=== PATIENT | female | born 1970 | race American Indian/Alaskan Native ===

== ENCOUNTER 2016-12-19 11:03 | Emergency (ER) | payer OTHER ==
[2016-12-19 11:16] VITALS: BP 155/81
[2016-12-19] MEDS ORDERED: NORCO PO ONE (11:38)
--- NOTE | 2016-12-19 11:39 | Emergency Department Report ---
ED Upper Extremity Inj HPI - General Chief Complaint: Fall Stated Complaint: FALL, LEFT ARM AND WRIST INJURY Time Seen by Provider: 12/19/16 11:25 Source: patient Mode of arrival: Ambulatory Limitations: No Limitations - History of Present Illness MD Complaint: Injury to:: left -: Sudden Other Extremity Injury: Elbow: Left Other Injuries: none Handedness: right Place: home Worsens With: movement of extremity Context: fall Associated Symptoms: denies other symptoms - Related Data Home Medications Medication Instructions Recorded Confirmed Last Taken ALBUTEROL Inhaler [Proair] 2 puff IH QID PRN 10/19/12 06/23/13 10/18/12 22:00 ASA/Calcium Carb/Mag/Al Hydrox 325 mg PO 10/19/12 06/23/13 10/18/12 10:00 [Ascriptin 325 mg Tablet] Cyclobenzaprine [Flexeril] 10 mg PO TID 10/19/12 06/23/13 06/23/13 FLUoxetine HCL [Fluoxetine] 40 mg PO QDAY 10/19/12 06/23/13 06/23/13 Hydrochlorothiazide [Hctz] 25 mg PO QDAY 10/19/12 06/23/13 06/23/13 Ibuprofen [Motrin] 800 mg PO TID PRN 10/19/12 06/23/13 10/17/12 22:00 Lisinopril [Zestril] 40 mg PO QDAY 10/19/12 06/23/13 06/23/13 Omeprazole [First-Omeprazole] 20 mg PO QDAY 10/19/12 06/23/13 06/23/13 Trazodone HCl [traZODone] 100 mg PO HS 10/19/12 06/23/13 06/23/13 hydrOXYzine PAMOATE (NF) [Vistaril] 25 mg PO 10/19/12 06/23/13 10/11/12 15:00 risperiDONE [RisperDAL] 2 mg PO HS 10/19/12 06/23/13 06/23/13 traMADol [Ultram] 50 mg PO Q6HR PRN 10/19/12 06/23/13 06/23/13 Aspirin [Aspirin TAB] 325 mg PO QDAY 06/23/13 06/23/13 06/23/13 Previous Rx's Medication Instructions Recorded Last Taken Type Hydrocodone Bit/Acetaminophen 1 each PO Q6H PRN #16 tablet 10/19/12 Unknown Rx [Lortab 5-500 Tablet] Sulfamethoxazole/Trimethoprim 1 each PO BID #14 tablet 10/19/12 Unknown Rx [Bactrim DS] Butalb/Acetamin/Caff 50-325-40 1 tab PO Q6H #15 tablet 11/02/12 06/23/13 Rx [Fioricet] Hyoscyamine Subl [Levsin Sl] 0.125 mg SL Q6HR PRN #14 tablet 06/23/13 Unknown Rx Ondansetron [Zofran Odt] 8 mg PO TID PRN #7 tab.rapdis 06/23/13 Unknown Rx amLODIPine [Norvasc] 5 mg PO DAILY #30 tab 06/23/13 Unknown Rx Allergies Allergy/AdvReac Type Severity Reaction Status Date / Time erythromycin base Allergy Swelling Verified 11/02/12 15:43 [Erythromycin Base] Penicillins Allergy Swelling Verified 10/19/12 02:25 Tetracyclines Allergy Swelling Verified 10/19/12 02:26 seafoo Allergy Swelling Uncoded 10/19/12 02:25 ED Review of Systems ROS: Stated complaint: FALL, LEFT ARM AND WRIST INJURY Other details as noted in HPI Comment: All other systems reviewed and negative Musculoskeletal: other (arm pain sp falling roller skating last pm) ED Past Medical Hx - Past Medical History Hx Hypertension: Yes Hx Heart Attack/AMI: Yes (2006) Hx Psychiatric Treatment: Yes (PTSD, depression, anxiety) Hx Asthma: Yes Additional medical history: chronic pain patient. Acid Reflux. gerd - Surgical History Additional Surgical History: Bilateral tubal ligation, laparoscopy, cardiac catheterization 2009 - Social History Smoking Status: Current Every Day Smoker Substance Use Type: None - Medications Home Medications: Home Medications Medication Instructions Recorded Confirmed Last Taken Type ALBUTEROL Inhaler [Proair] 2 puff IH QID PRN 10/19/12 06/23/13 10/18/12 22:00 History ASA/Calcium Carb/Mag/Al Hydrox 325 mg PO 10/19/12 06/23/13 10/18/12 10:00 History [Ascriptin 325 mg Tablet] Cyclobenzaprine [Flexeril] 10 mg PO TID 10/19/12 06/23/13 06/23/13 History FLUoxetine HCL [Fluoxetine] 40 mg PO QDAY 10/19/12 06/23/13 06/23/13 History Hydrochlorothiazide [Hctz] 25 mg PO QDAY 10/19/12 06/23/13 06/23/13 History Hydrocodone Bit/Acetaminophen 1 each PO Q6H PRN #16 tablet 10/19/12 06/23/13 Unknown Rx [Lortab 5-500 Tablet] Ibuprofen [Motrin] 800 mg PO TID PRN 10/19/12 06/23/13 10/17/12 22:00 History Lisinopril [Zestril] 40 mg PO QDAY 10/19/12 06/23/13 06/23/13 History Omeprazole [First-Omeprazole] 20 mg PO QDAY 10/19/12 06/23/13 06/23/13 History Sulfamethoxazole/Trimethoprim 1 each PO BID #14 tablet 10/19/12 06/23/13 Unknown Rx [Bactrim DS] Trazodone HCl [traZODone] 100 mg PO HS 10/19/12 06/23/13 06/23/13 History hydrOXYzine PAMOATE (NF) [Vistaril] 25 mg PO 10/19/12 06/23/13 10/11/12 15:00 History risperiDONE [RisperDAL] 2 mg PO HS 10/19/12 06/23/13 06/23/13 History traMADol [Ultram] 50 mg PO Q6HR PRN 10/19/12 06/23/13 06/23/13 History Butalb/Acetamin/Caff 50-325-40 1 tab PO Q6H #15 tablet 11/02/12 06/23/13 Rx [Fioricet] Aspirin [Aspirin TAB] 325 mg PO QDAY 06/23/13 06/23/13 06/23/13 History Hyoscyamine Subl [Levsin Sl] 0.125 mg SL Q6HR PRN #14 tablet 06/23/13 Unknown Rx Ondansetron [Zofran Odt] 8 mg PO TID PRN #7 tab.rapdis 06/23/13 Unknown Rx amLODIPine [Norvasc] 5 mg PO DAILY #30 tab 06/23/13 Unknown Rx ED Physical Exam - General Limitations: No Limitations General appearance: alert - Head Head exam: Present: atraumatic - Eye Eye exam: Present: normal appearance - ENT ENT exam: Present: mucous membranes moist - Neck Neck exam: Present: normal inspection - Respiratory Respiratory exam: Present: normal lung sounds bilaterally - Cardiovascular Cardiovascular Exam: Present: regular rate - GI/Abdominal GI/Abdominal exam: Present: soft - Rectal Rectal exam: Present: deferred - Expanded Upper Extremity Exam Right Shoulder Exam: Present: normal inspection Upper Arm exam: Present: tenderness (prox to elbow joint), other (guarding elbow ). Absent: swelling, abrasion, laceration, ecchymosis, deformity, crepidus, dislocation, erythema Elbow exam: Present: other (see above ) Forearm Wrist exam: Present: normal inspection, full ROM. Absent: tenderness, swelling, abrasion, laceration, ecchymosis, deformity, crepidus, tenderness over anatomical snuff box Hand Wrist exam: Present: normal inspection Neuro motor exam: Present: wrist extension intact, thumb opposition intact, thumb IP flexion intact, thumb adduction intact Vascular: Present: vascular compromise, normal capillary refill, radial pulse, ulnar pulse - Back Exam Back exam: Present: normal inspection - Neurological Exam Neurological exam: Present: alert, oriented X3, CN II-XII intact - Psychiatric Psychiatric exam: Present: normal affect, normal mood ED Course Vital Signs 12/19/16 11:13 Temperature 98.9 F Pulse Rate 86 Respiratory 20 Rate Blood Pressure 155/81 O2 Sat by Pulse 100 Oximetry - Reevaluation(s) Reevaluation #1: 12/19/16 to er sp fall while roller skating no loc happened yest co arm pain jessee at the elbow she is not exactly sure how she landed fingers and wrist w full rom pain w extension of arm at elbow shoulder wnl no snuff box ulnar and rad nerve intact good rad and ulnar pulses fine motor movement distal intact xray noted splint dc home w dc poc ED Medical Decision Making - Radiology Data Radiology results: report reviewed, image reviewed interpreted by me: fat pad fx Discussed with Dr Alba Critical care attestation.: If time is entered above; I have spent that time in minutes in the direct care of this critically ill patient, excluding procedure time. ED Disposition Disposition: DC-01 TO HOME OR SELFCARE Is pt being admited?: No Does the pt Need Aspirin: No Condition: Stable Instructions: Arm Fracture in Adults (ED) Additional Instructions: ice rest splint sling continue home pain meds per pain MD see ortho this week Referrals: CRYSTAL FRYE MD [Staff Physician] - 3-5 Days Time of Disposition: 12:42
--- NOTE | 2016-12-19 13:07 | XRay Report ---
LEFT ELBOW THREE VIEWS: 12/19/16 11:03:00 CLINICAL: Fall and pain. FINDINGS: A subtle longitudinal nondisplaced fracture is identified in the radial head on one view. No other fracture. No dislocation. Prominent anterior and posterior fat pads. Mild soft tissue swelling at the olecranon. IMPRESSION: Acute traumatic nondisplaced fracture of the radial head.
--- NOTE | 2016-12-19 13:08 | XRay Report ---
XRAY LEFT FOREARM TWO VIEWS : 12/19/16 11:03:00 CLINICAL: Trauma and pain. FINDINGS: Normal bones, joints and soft tissues. No fracture is identified on this exam. IMPRESSION: Negative.
--- NOTE | 2016-12-19 13:09 | XRay Report ---
XRAY LEFT WRIST THREE VIEWS:12/19/16 11:03:00 CLINICAL: Fall and pain. FINDINGS: Normal bones, joints and soft tissues. No fracture or dislocation. IMPRESSION: Normal
== END 2016-12-19 13:04 | disposition home or self-care (01) ==
LOC: ED 11:03
DX: S59.902A Unspecified injury of left elbow, initial encounter (principal); I10 Essential (primary) hypertension; I25.2 Old myocardial infarction; J45.909 Unspecified asthma, uncomplicated; F17.200 Nicotine dependence, unspecified, uncomplicated; W18.39XA Other fall on same level, initial encounter; Y93.89 Activity, other specified; Y92.89 Other specified places as the place of occurrence of the external cause; Y99.8 Other external cause status

== ENCOUNTER 2017-03-16 12:09 | Observation (INO) | payer OTHER ==
[2017-03-16] MEDS ORDERED: ASPIRIN PO ONE (15:23)
[2017-03-16] MEDS ORDERED: NITRO-BID 2% TP ONE (15:23)
--- NOTE | 2017-03-16 15:23 | Emergency Department Report ---
Blank Doc - Documentation Documentation: Patient is a 46-year-old female who is presenting with chest pain. Patient states she had a PR in 2007 and also had angioplasty in 2010. Patient states for the past several days she has had chest heaviness with shortness of breath. Patient will have a full cardiac panel placed and will be sent to the main ED for further care
[2017-03-16 15:48] LABS: Basophils # (Auto) 0.1 K/mm3 (0.0-0.1); Eosinophils # (Auto) 0.3 K/mm3 (0.0-0.4); Eosinophils % (Auto) 4.4 % (0.0-4.3); Hemoglobin 13.6 gm/dl (10.1-14.3); Lymphocytes # (Auto) 2.2 K/mm3 (1.2-5.4); Lymphocytes % (Auto) 30.2 % (13.4-35.0); Mean Corpuscular HGB Conc 33 % (30-34); Mean Corpuscular Hemoglobin 29 pg (28-32); Mean Corpuscular Volume 89 fl (79-97); Monocytes # (Auto) 0.4 K/mm3 (0.0-0.8); Monocytes % (Auto) 4.8 % (0.0-7.3); Platelet Count 330 K/mm3 (140-440); Red Blood Count 4.63 M/mm3 (3.65-5.03); Red Cell Distribution Width 15.7 % (13.2-15.2)
[2017-03-16 16:00] LABS: INR 0.99 (0.87-1.13)
[2017-03-16 16:01] LABS: Partial Thromboplastin Time 32.7 Sec. (24.2-36.6)
[2017-03-16 16:06] LABS: Alanine Aminotransferase 15 units/L (7-56); Albumin 4.2 g/dL (3.9-5); BUN/Creatinine Ratio 24; Blood Urea Nitrogen 17 mg/dL (7-17); Calcium 9.2 mg/dL (8.4-10.2); Hemolysis Index 10
--- NOTE | 2017-03-16 16:21 | XRay Report ---
FINAL REPORT PROCEDURE: XR CHEST ROUTINE 2V TECHNIQUE: PA and lateral chest radiographs were obtained. CPT 95103 HISTORY: Chest Pain COMPARISON: No prior studies are available for comparison. FINDINGS: Heart: Normal. Mediastinum/Vessels: Normal. Lungs/Pleural space: Normal. Bony thorax: No acute osseous abnormality. Other: IMPRESSION: Negative examination.
--- NOTE | 2017-03-16 16:27 | Emergency Department Report ---
ED Chest Pain HPI - General Chief Complaint: Chest Pain Stated Complaint: CHEST PAIN Time Seen by Provider: 03/16/17 15:01 Source: patient Mode of arrival: Ambulatory Limitations: No Limitations - History of Present Illness Initial Comments: This is a pleasant 46-year-old female with a past medical history significant for cardiac catheterization in 2009 and MA in 2006 with no stent placement at that time, asthma, hypertension, sciatica, GERD, osteopenia, and following mental health conditions PTSD, depression, anxiety, chronic pain syndrome. The patient went to her mental health clinic and was noted to have elevated blood pressure of 174/80. When she told them that she was having chest pain they referred her to the emergency room. She presents today with a 2 day history of constant chest pain described as dull and tingling with radiation into the back followed by a burning sensation. She does admit that it also radiates down her left arm which creates tingling. She also admits to some chills and weakness. She denies any kind of vomiting or diarrhea but she admits to nausea and she also denies a cough. She denies any fever as well. She admits to being a smoker half a pack a day she denies alcohol use or illicit drug use. 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 She admits that the symptoms that she is expressing today is similar in nature to her previous episodes where she had an MA. She denies that it feels like her usual GERD-like symptoms. She has taken her medications for GERD with no effect. MD Complaint: chest pain -: Gradual, days(s) (2) Onset: during rest Pain Location: substernal Pain Radiation: LUE, back Severity: moderate Quality: dull, similar to prior MA Consistency: constant Improves With: nothing Worsens With: nothing re: nausea. denies: vomting, diaphoresis, dyspnea, sense of impending doom Other Symptoms: denies: cough, fever, syncope, rash, acid taste in mouth, leg swelling, palpitations Treatments Prior to Arrival: none - Related Data Home Medications Medication Instructions Recorded Confirmed Last Taken Cyclobenzaprine [Flexeril] 10 mg PO TID 10/19/12 03/16/17 03/16/17 Hydrochlorothiazide [Hctz] 25 mg PO QDAY 10/19/12 03/16/17 03/16/17 Lisinopril [Zestril] 40 mg PO QDAY 10/19/12 03/16/17 03/16/17 traMADol [Ultram] 50 mg PO Q6HR PRN 10/19/12 03/16/17 03/16/17 Aspirin [Aspirin TAB] 325 mg PO QDAY 06/23/13 03/16/17 03/16/17 Escitalopram Oxalate [Lexapro] 20 mg PO DAILY 03/16/17 03/16/17 03/16/17 Meloxicam [Mobic] 15 mg PO DAILY 03/16/17 03/16/17 03/16/17 Pantoprazole [Protonix TAB] 20 mg QDAY 03/16/17 03/16/17 03/16/17 Prazosin [Minipress] 1 mg PO BID 03/16/17 03/16/17 03/16/17 amLODIPine [Norvasc] 10 mg PO DAILY 03/16/17 03/16/17 03/16/17 Allergies Allergy/AdvReac Type Severity Reaction Status Date / Time erythromycin base Allergy Swelling Verified 11/02/12 15:43 [Erythromycin Base] Penicillins Allergy Swelling Verified 10/19/12 02:25 Tetracyclines Allergy Swelling Verified 10/19/12 02:26 seafoo Allergy Swelling Uncoded 10/19/12 02:25 Heart Score - HEART Score History: Moderately suspicious EKG: Non-specific Age: 45-65 Risk factors: > 3 risk factors or hx of atherosclerotic disease Troponin: 1-3x normal limit HEART Score: 6 ED Review of Systems ROS: Stated complaint: CHEST PAIN Other details as noted in HPI Constitutional: no symptoms reported, chills. denies: fever Eyes: denies: eye pain, eye discharge, vision change ENT: denies: ear pain, throat pain Respiratory: denies: cough, shortness of breath, wheezing Cardiovascular: as per HPI, chest pain. denies: palpitations Endocrine: no symptoms reported Gastrointestinal: nausea. denies: abdominal pain, diarrhea Genitourinary: denies: urgency, dysuria, discharge Musculoskeletal: denies: back pain, joint swelling, arthralgia Skin: denies: rash, lesions Neurological: denies: headache, weakness, paresthesias Psychiatric: denies: anxiety, depression Hematological/Lymphatic: denies: easy bleeding, easy bruising ED Past Medical Hx - Past Medical History Hx Hypertension: Yes Hx Heart Attack/AMI: Yes (2006) Hx Psychiatric Treatment: Yes (PTSD, depression, anxiety) Hx Asthma: Yes Additional medical history: chronic pain patient. Acid Reflux. gerd - Surgical History Additional Surgical History: Bilateral tubal ligation, laparoscopy, cardiac catheterization 2009 - Social History Smoking Status: Current Every Day Smoker Substance Use Type: None - Medications Home Medications: Home Medications Medication Instructions Recorded Confirmed Last Taken Type Cyclobenzaprine [Flexeril] 10 mg PO TID 10/19/12 03/16/17 03/16/17 History Hydrochlorothiazide [Hctz] 25 mg PO QDAY 10/19/12 03/16/17 03/16/17 History Lisinopril [Zestril] 40 mg PO QDAY 10/19/12 03/16/17 03/16/17 History traMADol [Ultram] 50 mg PO Q6HR PRN 10/19/12 03/16/17 03/16/17 History Aspirin [Aspirin TAB] 325 mg PO QDAY 06/23/13 03/16/17 03/16/17 History Escitalopram Oxalate [Lexapro] 20 mg PO DAILY 03/16/17 03/16/17 03/16/17 History Meloxicam [Mobic] 15 mg PO DAILY 03/16/17 03/16/17 03/16/17 History Pantoprazole [Protonix TAB] 20 mg QDAY 03/16/17 03/16/17 03/16/17 History Prazosin [Minipress] 1 mg PO BID 03/16/17 03/16/17 03/16/17 History amLODIPine [Norvasc] 10 mg PO DAILY 03/16/17 03/16/17 03/16/17 History ED Physical Exam - General Limitations: No Limitations General appearance: alert, in no apparent distress - Head Head exam: Present: atraumatic - Eye Eye exam: Present: normal appearance, PERRL - ENT ENT exam: Present: normal exam, normal orophraynx - Neck Neck exam: Present: normal inspection - Respiratory Respiratory exam: Present: normal lung sounds bilaterally. Absent: respiratory distress, wheezes, rales, rhonchi - Cardiovascular Cardiovascular Exam: Present: regular rate, normal rhythm - GI/Abdominal GI/Abdominal exam: Present: soft, normal bowel sounds - Extremities Exam Extremities exam: Present: normal inspection, full ROM - Back Exam Back exam: Present: normal inspection, full ROM - Neurological Exam Neurological exam: Present: alert, oriented X3, CN II-XII intact - Psychiatric Psychiatric exam: Present: normal affect, normal mood - Skin Skin exam: Present: warm, dry, intact, normal color ED Course Vital Signs 03/16/17 03/16/17 03/16/17 12:15 12:21 15:45 Temperature 97.9 F Pulse Rate 95 H Respiratory 18 19 Rate Blood Pressure 152/80 152/80 Blood Pressure [Right] O2 Sat by Pulse 99 Oximetry 03/16/17 03/16/17 03/16/17 16:01 16:15 16:30 Temperature 98.0 F Pulse Rate 75 76 82 Respiratory 19 17 21 Rate Blood Pressure 121/61 136/62 129/61 Blood Pressure 121/61 [Right] O2 Sat by Pulse 100 100 100 Oximetry 03/16/17 03/16/17 03/16/17 16:45 16:53 17:00 Temperature Pulse Rate 93 H 97 H 81 Respiratory 11 L 12 Rate Blood Pressure 123/61 123/61 122/68 Blood Pressure [Right] O2 Sat by Pulse 100 Oximetry 03/16/17 17:15 Temperature Pulse Rate 79 Respiratory 14 Rate Blood Pressure 110/55 Blood Pressure [Right] O2 Sat by Pulse 100 Oximetry - Reevaluation(s) Reevaluation #1: 03/16/17 18:17 I discussed the case with Dr. Gama. At this time we'll go ahead and admit the patient for observation to rule out any type of acute coronary syndrome. I stressed to the patient as well. She is understanding. ED Medical Decision Making - Lab Data Result diagrams: 03/16/17 15:33 03/16/17 15:33 Critical care attestation.: If time is entered above; I have spent that time in minutes in the direct care of this critically ill patient, excluding procedure time. ED Disposition Clinical Impression: Chest pain Qualifiers: Chest pain type: other chest pain Qualified Code(s): R07.89 - Other chest pain ; R07.8 - Other chest pain Disposition: OP ADMIT IP TO THIS HOSP Is pt being admited?: Yes Does the pt Need Aspirin: No Condition: Stable Instructions: Chest Pain (ED) Referrals: PRIMARY CARE, [Primary Care Provider] - 3-5 Days
[2017-03-16 16:29] LABS: Amphetamine Screen,Urine PRESUMPTIVE NEGATIVE; Benzodiazepines Screen,Urine PRESUMPTIVE NEGATIVE; Cannabinoid Screen,Urine PRESUMPTIVE NEGATIVE; Cocaine Screen,Urine PRESUMPTIVE NEGATIVE; Methadone Screen,Urine PRESUMPTIVE NEGATIVE; Opiate Screen,Urine PRESUMPTIVE NEGATIVE
[2017-03-16] MEDS ORDERED: ZOFRAN IV ONE ×2 (18:08→22:48)
[2017-03-16] MEDS ORDERED: LIDOCAINE VISCOUS 2% PO ONE (22:36)
[2017-03-16] MEDS ORDERED: ALUM-MAG HYDROX-SIMETH 200-200-20MG/5ML PO ONE (22:39)
[2017-03-16] MEDS ORDERED: LIDOCAINE VISCOUS 2% ONE (22:41)
[2017-03-16] MEDS ORDERED: ALUM-MAG HYDROX-SIMETH 200-200-20MG/5ML ONE (22:41)
[2017-03-16] MEDS ORDERED: ZOFRAN ONE (22:47)
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
[2017-03-17] MEDS ORDERED: DULCOLAX PR PRN (00:55)
[2017-03-17] MEDS ORDERED: DILAUDID IV PRN (00:55)
[2017-03-17] MEDS ORDERED: MILK OF MAGNESIA PO PRN (00:55)
[2017-03-17] MEDS ORDERED: TYLENOL PO PRN (00:55)
[2017-03-17] MEDS ORDERED: ZOFRAN IV PRN (00:55)
[2017-03-17] MEDS ORDERED: ULTRAM PO PRN (01:01)
[2017-03-17] MEDS ORDERED: MORPHINE IV PRN (01:22)
[2017-03-17] MEDS ORDERED: MINIPRESS PO SCH (02:00)
[2017-03-17] MEDS ORDERED: NACL 0.9% 1000 ML 1,000 ML ONE ×3 (02:31→05:18)
[2017-03-17] MEDS ORDERED: NACL 0.9% 1000 ML 1,000 ML IV ONE (05:36)
[2017-03-17] MEDS ORDERED: NACL 0.9% 1000 ML 1,000 ML IV SCH (06:00)
[2017-03-17] MEDS: FLEXERIL PO SCH ×2 (07:55→15:14)
[2017-03-17] MEDS ORDERED: LEXISCAN IV ONE ×2 (09:03→09:04)
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
[2017-03-17] MEDS ORDERED: HCTZ PO SCH (10:00)
[2017-03-17] MEDS ORDERED: NORVASC PO SCH (10:00)
[2017-03-17] MEDS ORDERED: PEPCID PO SCH (10:00)
[2017-03-17] MEDS ORDERED: LEXAPRO PO SCH (10:00)
[2017-03-17] MEDS ORDERED: PROTONIX PO SCH (10:00)
[2017-03-17] MEDS ORDERED: NON-FORMULARY (Escitalopram Oxalate [Lexapro] 20 MG) PO SCH (10:00)
[2017-03-17] MEDS ORDERED: MOBIC PO SCH (10:00)
[2017-03-17] MEDS ORDERED: ASPIRIN PO SCH (10:00)
[2017-03-17] MEDS ORDERED: ZESTRIL PO SCH (10:00)
[2017-03-17] MEDS ORDERED: NON-FORMULARY (Meloxicam [Mobic] 15 MG) PO SCH (10:00)
--- NOTE | 2017-03-17 13:24 | Event Note ---
Date: 03/17/17 Lexiscan MPI stress test this AM negative for ischemia, EF 61%. Currently stable cardiac status. Pt may discharge home from cardiology standpoint. Follow up in our [place] office with Ene Hartley NP, on 03/30/2017 @ 1:00PM. Alfie NOGUEIRA NP / DR. CAMACHO
--- NOTE | 2017-03-17 14:45 | Discharge Summary ---
<HILARY GOODRICH - Last Filed: 03/17/17 16:16> Providers - Providers Date of Admission: 03/16/17 18:19 Date of discharge: 03/17/17 Attending physician: RICKIE CA 03/17/17 00:55 Consult to Physician [CONS] Routine Consulting Provider: ALEXANDRE OJEDA Reason For Exam: CAD Place consult to:: CARDIO Notified:: N Primary care physician: CUTTER OPERATOR Hospitalization Condition: Stable Pertinent studies: Patient had a negative chest x-ray.. Lexiscan MPI stress test this AM negative for ischemia, EF 61%. Hospital course: 46-year-old female with a past medical history significant for cardiac catheterization in 2009 and [place] in 2006 with no stent placement at that time, asthma, hypertension, sciatica, GERD, osteopenia, and following mental health conditions PTSD, depression, anxiety, chronic pain syndrome. The patient went to her mental health clinic and was noted to have elevated blood pressure of 174 /80. When she told them that she was having chest pain they referred her to the emergency room. She presents today with a 2 day history of constant chest pain described as dull and tingling with radiation into the back followed by a burning sensation. -Patient had a stress test which revealed no ischemia. She was treated with analgesics and IV fluids for chest pain. -Patient with discharge home and continued on her current medication regimen. Discharge diagnoses Atypical chest pain Hypertension GERD Depression DVT prophylaxis Disposition: TO HOME OR SELFCARE Time spent for discharge: 32 minutes Core Measure Documentation - Palliative Care Palliative Care/ Comfort Measures: Not Applicable - Core Measures Any of the following diagnoses?: none Exam - Constitutional Vitals: Temp Pulse Resp BP Pulse Ox 97.4 F L 86 18 123/74 100 03/17/17 11:44 03/17/17 11:44 03/17/17 11:44 03/17/17 11:44 03/17/17 11:44 General appearance: Present: no acute distress, well-nourished - EENT Eyes: Present: PERRL ENT: hearing intact, clear oral mucosa - Neck Neck: Present: supple, normal ROM - Respiratory Respiratory effort: normal Respiratory: bilateral: CTA - Cardiovascular Heart Sounds: Present: S1 & S2. Absent: rub, click - Extremities Extremities: pulses symmetrical, No edema Peripheral Pulses: within normal limits - Abdominal General gastrointestinal: Present: soft, non-tender, non-distended, normal bowel sounds - Integumentary Integumentary: Present: clear, warm, dry - Musculoskeletal Musculoskeletal: gait normal, strength equal bilaterally - Psychiatric Psychiatric: appropriate mood/affect, intact judgment & insight - Neurologic Neurologic: CNII-XII intact, moves all extremities - Allied Health Allied health notes reviewed: nursing Plan Activity: advance as tolerated, fall precautions Weight Bearing Status: Weight Bear as Tolerated Diet: low fat, low cholesterol, low salt Follow up with: PRIMARY CARE, [Primary Care Provider] - 3-5 Days RUBIO GOSS NP [Advanced Practice Nurse] - 03/30/17 1:00 pm <RICKIE CA - Last Filed: 03/18/17 10:17> Providers - Providers Date of Admission: 03/16/17 18:19 Attending physician: RICKIE CA 03/17/17 00:55 Consult to Physician [CONS] Routine Consulting Provider: ALEXANDRE OJEDA Reason For Exam: CAD Place consult to:: CARDIO Notified:: N Primary care physician: CUTTER OPERATOR Hospitalization Hospital course: I saw and evaluated the patient. I agree with the findings and the plan of care as documented in the Nurse Practitioner's~note, with the following corrections and additions. Discharge diagnoses Atypical chest pain, likely due to GERD Hypertension, controlled with home meds Depression, need outpt follow up DVT prophylaxis Exam - Constitutional Vitals: Temp Pulse Resp BP Pulse Ox 97.4 F L 91 H 18 109/55 100 03/17/17 11:44 03/17/17 15:15 03/17/17 11:44 03/17/17 15:15 03/17/17 14:49
[2017-03-17 15:15] VITALS: BP 109/55
== END 2017-03-17 18:13 | disposition home or self-care (01) ==
LOC: ED 12:09 → 3A 18:19 → 4A 03-17 08:26
PROVIDERS: ADMIT Internal Medicine; ATTEND Internal Medicine
DX: R07.89 Other chest pain (principal); I10 Essential (primary) hypertension; K21.9 Gastro-esophageal reflux disease without esophagitis; F41.9 Anxiety disorder, unspecified; F32.9 Major depressive disorder, single episode, unspecified; J45.909 Unspecified asthma, uncomplicated; I25.2 Old myocardial infarction; G89.29 Other chronic pain; F17.210 Nicotine dependence, cigarettes, uncomplicated
CPT/HCPCS: 36415; 71046; 78452; 80053; 80307; 83036; 84484; 85025; 85610; 85730; 93005; 93010; 93017; 96361; 96374; 96376; 99285; A9502; G0378; J2405; J2785; J7030

== ENCOUNTER 2018-10-04 17:30 | Emergency (ER) | payer OTHER ==
[2018-10-04 18:43] VITALS: BP 165/75
--- NOTE | 2018-10-04 18:47 | Event Note ---
ED Screening Note Date of service: 10/04/18 Time: 18:45 ED Screening Note: cc of allergic reaction to her gabapentin This initial assessment/diagnostic orders/clinical plan/treatment(s) is/are subject to change based on patients health status, clinical progression and re- assessment by fellow clinical providers in the ED. Further treatment and workup at subsequent clinical providers discretion. Patient/guardian urged not to elope from the ED as their condition may be serious if not clinically assessed and managed. Initial orders include:
[2018-10-04 21:18] LABS: Alanine Aminotransferase 13 units/L (7-56); Albumin 4.3 g/dL (3.9-5); BUN/Creatinine Ratio 21; Basophils # (Auto) 0.1 K/mm3 (0.0-0.1); Basophils % (Auto) 0.8 % (0.0-1.8); Blood Urea Nitrogen 19 mg/dL (7-17); Calcium 9.9 mg/dL (8.4-10.2); Eosinophils # (Auto) 0.1 K/mm3 (0.0-0.4); Eosinophils % (Auto) 1.7 % (0.0-4.3); Hematocrit 40.2 % (30.3-42.9); Hemoglobin 13.5 gm/dl (10.1-14.3); Hemolysis Index 4; Lymphocytes # (Auto) 3.2 K/mm3 (1.2-5.4); Mean Corpuscular HGB Conc 34 % (30-34); Mean Corpuscular Volume 86 fl (79-97); Monocytes # (Auto) 0.4 K/mm3 (0.0-0.8); Monocytes % (Auto) 4.9 % (0.0-7.3); Platelet Count 337 K/mm3 (140-440); Red Blood Count 4.69 M/mm3 (3.65-5.03)
--- NOTE | 2018-10-04 23:15 | Emergency Department Report ---
ED General Adult HPI - General Chief complaint: Allergic Reaction Stated complaint: SOB/VOMITING BLOOD Time Seen by Provider: 10/04/18 18:44 Source: patient Mode of arrival: Ambulatory Limitations: No Limitations - History of Present Illness Initial comments: 47-year-old female well as department complaining of having a reaction to her gabapentin at that she increased the dose to twice the amount guidance of her physician. States she began having some tingling to her lips and therefore with her mouth and was she felt was swelling and some some dysphagia. There is no swelling or dysphasia present time. She was worried that she may have been h aving a reaction so she wanted to be evaluated. States that she is taking his medications for several months and when she initially started the medication. She had similar symptoms that did resolve with her continuous use. However, she wanted to be sure. -: Gradual Location: face, mouth Consistency: now resolved Improves with: none Worsens with: none Associated Symptoms: denies other symptoms Treatments Prior to Arrival: none - Related Data Home Medications Medication Instructions Recorded Confirmed Last Taken Cyclobenzaprine [Flexeril 10 MG 10 mg PO TID 10/19/12 03/16/17 03/16/17 TAB] Lisinopril [Zestril TAB] 40 mg PO QDAY 10/19/12 03/16/17 03/16/17 hydroCHLOROthiazide [HCTZ] 25 mg PO QDAY 10/19/12 03/16/17 03/16/17 traMADol [Ultram 50 MG tab] 50 mg PO Q6HR PRN 10/19/12 03/16/17 03/16/17 Aspirin 325 mg PO QDAY 06/23/13 03/16/17 03/16/17 Escitalopram Oxalate [Lexapro] 20 mg PO DAILY 03/16/17 03/16/17 03/16/17 Meloxicam [Mobic] 15 mg PO DAILY 03/16/17 03/16/17 03/16/17 Pantoprazole [Protonix TAB] 20 mg QDAY 03/16/17 03/16/17 03/16/17 Prazosin [Minipress] 1 mg PO BID 03/16/17 03/16/17 03/16/17 amLODIPine [Norvasc] 10 mg PO DAILY 03/16/17 03/16/17 03/16/17 Allergies Allergy/AdvReac Type Severity Reaction Status Date / Time erythromycin base Allergy Swelling Verified 11/02/12 15:43 [Erythromycin Base] Penicillins Allergy Swelling Verified 10/19/12 02:25 Tetracyclines Allergy Swelling Verified 10/19/12 02:26 seafoo Allergy Swelling Uncoded 10/19/12 02:25 ED Review of Systems ROS: Stated complaint: SOB/VOMITING BLOOD Other details as noted in HPI Comment: All other systems reviewed and negative ED Past Medical Hx - Past Medical History Previous Medical History?: Yes Hx Hypertension: Yes Hx Heart Attack/AMI: Yes (2006) Hx Psychiatric Treatment: Yes (PTSD, depression, anxiety) Hx Asthma: Yes Additional medical history: chronic pain patient. Acid Reflux. gerd - Surgical History Past Surgical History?: Yes Additional Surgical History: Bilateral tubal ligation, laparoscopy, cardiac catheterization 2009 - Social History Smoking Status: Current Every Day Smoker Substance Use Type: Alcohol - Medications Home Medications: Home Medications Medication Instructions Recorded Confirmed Last Taken Type Cyclobenzaprine [Flexeril 10 MG 10 mg PO TID 10/19/12 03/16/17 03/16/17 History TAB] Lisinopril [Zestril TAB] 40 mg PO QDAY 10/19/12 03/16/17 03/16/17 History hydroCHLOROthiazide [HCTZ] 25 mg PO QDAY 10/19/12 03/16/17 03/16/17 History traMADol [Ultram 50 MG tab] 50 mg PO Q6HR PRN 10/19/12 03/16/17 03/16/17 History Aspirin 325 mg PO QDAY 06/23/13 03/16/17 03/16/17 History Escitalopram Oxalate [Lexapro] 20 mg PO DAILY 03/16/17 03/16/17 03/16/17 History Meloxicam [Mobic] 15 mg PO DAILY 03/16/17 03/16/17 03/16/17 History Pantoprazole [Protonix TAB] 20 mg QDAY 03/16/17 03/16/17 03/16/17 History Prazosin [Minipress] 1 mg PO BID 03/16/17 03/16/17 03/16/17 History amLODIPine [Norvasc] 10 mg PO DAILY 03/16/17 03/16/17 03/16/17 History ED Physical Exam - General Limitations: No Limitations General appearance: alert, in no apparent distress - Head Head exam: Present: atraumatic, normocephalic - Eye Eye exam: Present: normal appearance, PERRL, EOMI Pupils: Present: normal accommodation - ENT ENT exam: Present: normal exam, normal orophraynx, mucous membranes moist, TM's normal bilaterally, other (airway patent. No distress) - Neck Neck exam: Present: normal inspection - Respiratory Respiratory exam: Present: normal lung sounds bilaterally. Absent: respiratory distress, wheezes, rales, rhonchi, chest wall tenderness - Cardiovascular Cardiovascular Exam: Present: regular rate, normal rhythm. Absent: systolic murmur, diastolic murmur, rubs, gallop - GI/Abdominal GI/Abdominal exam: Present: soft, normal bowel sounds - Extremities Exam Extremities exam: Present: normal inspection - Back Exam Back exam: Present: normal inspection - Neurological Exam Neurological exam: Present: alert, oriented X3 - Psychiatric Psychiatric exam: Present: normal affect, normal mood - Skin Skin exam: Present: warm, dry, intact, normal color. Absent: rash ED Course Vital Signs 10/04/18 18:42 Temperature 98.1 F Pulse Rate 91 H Respiratory 18 Rate Blood Pressure 165/75 O2 Sat by Pulse 100 Oximetry ED Medical Decision Making - Lab Data Result diagrams: 10/04/18 20:32 10/04/18 20:32 - Medical Decision Making 47-year-old female status post increasing her gabapentin with likely a medication reaction or usual side effect of the elbow. No angioedema present at this time. No active signs of an allergic reaction present at this time. She is alert and oriented 3. Tolerates oral no distress. No wheezing. Laboratory data did not reveal an infectious findings or issues with her hemoglobin status Critical care attestation.: If time is entered above; I have spent that time in minutes in the direct care of this critically ill patient, excluding procedure time. ED Disposition Clinical Impression: Medication reaction Disposition: DC-01 TO HOME OR SELFCARE Is pt being admited?: No Does the pt Need Aspirin: No Condition: Stable Instructions: Hypertension (ED), Adverse Drug Reaction (ED) Additional Instructions: Please resume previous normal dose of Neurontin as we discussed once she have spoken with her primary care provider. Hold off on any new medications at this time until you can clearly of PCP. There is no active angioedema or anaphylaxis. Referrals: PRIMARY CARE, [Primary Care Provider] - 3-5 Days [facility] [Provider Group] - 3-5 Days
== END 2018-10-04 23:50 | disposition home or self-care (01) ==
LOC: ED 17:30
DX: K92.0 Hematemesis (principal); R06.02 Shortness of breath; K13.0 Diseases of lips; R13.10 Dysphagia, unspecified; T42.6X5A Adverse effect of other antiepileptic and sedative-hypnotic drugs, initial encounter; I10 Essential (primary) hypertension; I25.2 Old myocardial infarction; F43.10 Post-traumatic stress disorder, unspecified; F32.9 Major depressive disorder, single episode, unspecified; F41.9 Anxiety disorder, unspecified; J45.909 Unspecified asthma, uncomplicated; K21.9 Gastro-esophageal reflux disease without esophagitis; F17.200 Nicotine dependence, unspecified, uncomplicated; Z98.51 Tubal ligation status; Z95.818 Presence of other cardiac implants and grafts; Z79.82 Long term (current) use of aspirin; Z79.899 Other long term (current) drug therapy; Z88.1 Allergy status to other antibiotic agents; Z88.0 Allergy status to penicillin; Z91.013 Allergy to seafood; Y92.89 Other specified places as the place of occurrence of the external cause
CPT/HCPCS: 36415; 80053; 85025

== ENCOUNTER 2019-04-16 19:30 | Emergency (ER) | payer MEDICAID, OTHER ==
--- NOTE | 2019-04-16 20:17 | XRay Report ---
CHEST 2 VIEWS INDICATION / CLINICAL INFORMATION: Persistent cough and chest pain. COMPARISON: 03/16/17. FINDINGS: SUPPORT DEVICES: None. HEART / MEDIASTINUM: The heart size and pulmonary vasculature are normal. The aorta is normal in arsh tom. LUNGS / PLEURA: No significant pulmonary or pleural abnormality. No pneumothorax. ADDITIONAL FINDINGS: No significant additional findings. IMPRESSION: No acute abnormality or significant change. Signer Name: Jose Gibson MD Signed: 04/16/2019 8:12 PM Workstation Name: [id number]
[2019-04-16] MEDS ORDERED: ASPIRIN 325 MG TAB PO ONE (21:13)
[2019-04-16] MEDS ORDERED: IPRATROPIUM/ALBUTEROL SULFATE 3 ML AMPUL.NEB IH ONE (21:13)
[2019-04-16] MEDS ORDERED: methylPREDNISolone Sod Succinate 125 MG/2 ML INJ IV ONE (21:13)
[2019-04-16 22:07] LABS: Basophils # (Auto) 0.1 K/mm3 (0.0-0.1); Basophils % (Auto) 0.8 % (0.0-1.8); Eosinophils # (Auto) 0.2 K/mm3 (0.0-0.4); Eosinophils % (Auto) 2.7 % (0.0-4.3); Hematocrit 38.8 % (30.3-42.9); Hemoglobin 12.7 gm/dl (10.1-14.3); Lymphocytes # (Auto) 2.8 K/mm3 (1.2-5.4); Lymphocytes % (Auto) 39.2 % (13.4-35.0); Mean Corpuscular HGB Conc 33 % (30-34); Mean Corpuscular Volume 88 fl (79-97); Monocytes # (Auto) 0.4 K/mm3 (0.0-0.8); Monocytes % (Auto) 5.7 % (0.0-7.3); Platelet Count 370 K/mm3 (140-440); Red Blood Count 4.42 M/mm3 (3.65-5.03); Red Cell Distribution Width 15.7 % (13.2-15.2)
[2019-04-16 22:35] LABS: Alanine Aminotransferase 14 units/L (7-56); Albumin 4.1 g/dL (3.9-5); BUN/Creatinine Ratio 10; Blood Urea Nitrogen 7 mg/dL (7-17); Calcium 10.2 mg/dL (8.4-10.2); Hemolysis Index 0
[2019-04-16 23:50] VITALS: BP 132/61
--- NOTE | 2019-04-17 01:31 | Emergency Department Report ---
ED General Adult HPI - General Chief complaint: Chest Pain Stated complaint: CHEST PAIN/CHILLS/NAUSEA Source: patient Mode of arrival: Ambulatory Limitations: No Limitations - History of Present Illness Initial comments: Patient is a 48-year-old -Spanish female with a history of hypertension, chronic back pain, asthma and heavy tobacco smoker who presents to the ED with complaint of persistent nasal and sinus congestion, persistent cough with pleuritic chest pain, subjective fever and chills, sore throat, headache and diffuse body aches and pains for the last 1 week, worse in the last 2 days. Patient states that the cough has been productive with white to yellowish phlegm. Patient states that she has been taking [id number] medications for cough with no relief. Patient denies dizziness, shortness of breath, nausea, vomiting, abdominal pain, dysuria, urinary frequency and urgency, palpitations, syncope, change in vision or neck pain. MD Complaint: Nasal congestion; pleuritic chest pain; cough with phlegm -: Sudden, week(s) (1) Location: chest Radiation: non-radiation Severity scale (0 -10): 5 Quality: aching, sharp Consistency: constant Improves with: none Worsens with: none Associated Symptoms: denies other symptoms, chest pain (Pleuritic chest pain), cough, fever/chills, headaches, loss of appetite, malaise, shortness of breath. denies: confusion, diaphoresis, nausea/vomiting, rash, seizure, syncope, weakness, other Treatments Prior to Arrival: none - Related Data Home Medications Medication Instructions Recorded Confirmed Last Taken Cyclobenzaprine [Flexeril 10 MG 10 mg PO TID 10/19/12 03/16/17 03/16/17 TAB] hydroCHLOROthiazide [HCTZ] 25 mg PO QDAY 10/19/12 03/16/17 03/16/17 lisinopriL [Zestril TAB] 40 mg PO QDAY 10/19/12 03/16/17 03/16/17 traMADoL [Ultram 50 MG tab] 50 mg PO Q6HR PRN 10/19/12 03/16/17 03/16/17 Aspirin 325 mg PO QDAY 06/23/13 03/16/17 03/16/17 Escitalopram Oxalate [Lexapro] 20 mg PO DAILY 03/16/17 03/16/17 03/16/17 Meloxicam [Mobic] 15 mg PO DAILY 03/16/17 03/16/17 03/16/17 Pantoprazole [Protonix TAB] 20 mg QDAY 03/16/17 03/16/17 03/16/17 Prazosin 1 mg PO BID 03/16/17 03/16/17 03/16/17 amLODIPine 10 mg PO DAILY 03/16/17 03/16/17 03/16/17 Previous Rx's Medication Instructions Recorded Last Taken Type Albuterol Sulfate [Proventil Hfa] 1 - 2 puff IH Q6H PRN #1 inh 04/17/19 Unknown Rx Benzonatate [Tessalon Perles] 100 mg PO Q8HR #30 capsule 04/17/19 Unknown Rx Cetirizine HCl [Zyrtec 10mg tab] 10 mg PO DAILY #30 tablet 04/17/19 Unknown Rx Ibuprofen [Motrin] 800 mg PO Q8HR PRN #24 tablet 04/17/19 Unknown Rx Prednisone [predniSONE 10 mg 10 mg PO .TAPER #21 tab.ds.pk 04/17/19 Unknown Rx (6-Day Pack, 21 Tabs)] levoFLOXacin [Levaquin TAB] 500 mg PO QDAY #10 tablet 04/17/19 Unknown Rx Allergies Allergy/AdvReac Type Severity Reaction Status Date / Time erythromycin base Allergy Swelling Verified 11/02/12 15:43 [Erythromycin Base] Penicillins Allergy Swelling Verified 10/19/12 02:25 Tetracyclines Allergy Swelling Verified 10/19/12 02:26 seafoo Allergy Swelling Uncoded 10/19/12 02:25 ED Review of Systems ROS: Stated complaint: CHEST PAIN/CHILLS/NAUSEA Other details as noted in HPI Constitutional: denies: chills, fever Eyes: denies: eye pain, eye discharge, vision change ENT: congestion. denies: ear pain, throat pain Respiratory: cough, shortness of breath, wheezing Cardiovascular: chest pain (Pleuritic chest wall pain). denies: palpitations Endocrine: no symptoms reported Gastrointestinal: denies: abdominal pain, nausea, vomiting, diarrhea Genitourinary: denies: urgency, dysuria, discharge Musculoskeletal: arthralgia, myalgia. denies: back pain, joint swelling Skin: denies: rash, lesions Neurological: headache. denies: weakness, paresthesias Psychiatric: denies: anxiety, depression Hematological/Lymphatic: denies: easy bleeding, easy bruising ED Past Medical Hx - Past Medical History Previous Medical History?: Yes Hx Hypertension: Yes Hx Heart Attack/AMI: Yes (2006) Hx Psychiatric Treatment: Yes (PTSD, depression, anxiety) Hx Asthma: Yes Additional medical history: chronic pain patient. Acid Reflux. gerd - Surgical History Past Surgical History?: Yes Additional Surgical History: Bilateral tubal ligation, laparoscopy, cardiac catheterization 2009 - Social History Smoking Status: Current Every Day Smoker Substance Use Type: None - Medications Home Medications: Home Medications Medication Instructions Recorded Confirmed Last Taken Type Cyclobenzaprine [Flexeril 10 MG 10 mg PO TID 10/19/12 03/16/17 03/16/17 History TAB] hydroCHLOROthiazide [HCTZ] 25 mg PO QDAY 10/19/12 03/16/17 03/16/17 History lisinopriL [Zestril TAB] 40 mg PO QDAY 10/19/12 03/16/17 03/16/17 History traMADoL [Ultram 50 MG tab] 50 mg PO Q6HR PRN 10/19/12 03/16/17 03/16/17 History Aspirin 325 mg PO QDAY 06/23/13 03/16/17 03/16/17 History Escitalopram Oxalate [Lexapro] 20 mg PO DAILY 03/16/17 03/16/17 03/16/17 History Meloxicam [Mobic] 15 mg PO DAILY 03/16/17 03/16/17 03/16/17 History Pantoprazole [Protonix TAB] 20 mg QDAY 03/16/17 03/16/17 03/16/17 History Prazosin 1 mg PO BID 03/16/17 03/16/17 03/16/17 History amLODIPine 10 mg PO DAILY 03/16/17 03/16/17 03/16/17 History Albuterol Sulfate [Proventil Hfa] 1 - 2 puff IH Q6H PRN #1 inh 04/17/19 Unknown Rx Benzonatate [Tessalon Perles] 100 mg PO Q8HR #30 capsule 04/17/19 Unknown Rx Cetirizine HCl [Zyrtec 10mg tab] 10 mg PO DAILY #30 tablet 04/17/19 Unknown Rx Ibuprofen [Motrin] 800 mg PO Q8HR PRN #24 tablet 04/17/19 Unknown Rx Prednisone [predniSONE 10 mg 10 mg PO .TAPER #21 tab.ds.pk 04/17/19 Unknown Rx (6-Day Pack, 21 Tabs)] levoFLOXacin [Levaquin TAB] 500 mg PO QDAY #10 tablet 04/17/19 Unknown Rx ED Physical Exam - General Limitations: No Limitations General appearance: alert, in no apparent distress - Head Head exam: Present: atraumatic, normocephalic, normal inspection - Eye Eye exam: Present: normal appearance, PERRL, EOMI Pupils: Present: normal accommodation - ENT ENT exam: Present: mucous membranes moist, TM's normal bilaterally, normal external ear exam, other (Grossly congested nasal passages; palpable frontal sinus pressure) - Neck Neck exam: Present: normal inspection, full ROM. Absent: tenderness, lymphadenopathy - Respiratory Respiratory exam: Present: wheezes (Mildly diffuse coarse wheezes). Absent: respiratory distress, rales, rhonchi, chest wall tenderness, accessory muscle use, decreased breath sounds, prolonged expiratory - Cardiovascular Cardiovascular Exam: Present: regular rate, normal rhythm, normal heart sounds. Absent: systolic murmur, diastolic murmur, rubs, gallop - GI/Abdominal GI/Abdominal exam: Present: soft, normal bowel sounds. Absent: tenderness, guarding, hyperactive bowel sounds, hypoactive bowel sounds, organomegaly - Extremities Exam Extremities exam: Present: normal inspection, full ROM, normal capillary refill - Back Exam Back exam: Present: normal inspection, full ROM. Absent: tenderness, CVA tenderness (R), muscle spasm, paraspinal tenderness, vertebral tenderness - Neurological Exam Neurological exam: Present: alert, oriented X3, CN II-XII intact, normal gait, reflexes normal - Psychiatric Psychiatric exam: Present: normal affect, normal mood - Skin Skin exam: Present: warm, dry, intact, normal color. Absent: rash ED Course Vital Signs 04/16/19 04/16/19 04/16/19 19:34 19:50 23:49 Temperature 98.7 F 98.7 F 98.0 F Pulse Rate 85 85 84 Respiratory 18 18 16 Rate Blood Pressure 172/74 172/74 Blood Pressure 132/61 [Left] O2 Sat by Pulse 100 100 100 Oximetry 04/16/19 23:50 Temperature Pulse Rate Respiratory 16 Rate Blood Pressure Blood Pressure [Left] O2 Sat by Pulse 98 Oximetry ED Medical Decision Making - Lab Data Result diagrams: 04/16/19 21:25 04/16/19 21:25 - Radiology Data Radiology results: report reviewed, image reviewed Chest x-ray shows no acute cardiopulmonary abnormalities or pneumonitis. - Medical Decision Making This is a 48-year-old female with a history of asthma, hypertension, chronic back pain and heavy tobacco smoker who presented to the ED with persistent nasal and sinus congestion, persistent cough with white to yellowish phlegm, pleuritic chest wall pain and generalized weakness with subjective fever and chills for the last 1 week. In the ED, patient is alert and oriented x3 and is not in distress. Patient received DuoNeb treatment in the ED, also received steroid and aspirin in the ED. Chest x-ray showed no acute cardiopulmonary abnormalities or pneumonitis. Lab test results were reviewed and are all nonactionable including initial and repeat troponin levels. On reevaluation, patient felt better, wheezing resolved and patient slept most of the time in the ED with no difficulty. Patient was discharged home on medications and was advised to follow-up with her primary care physician in 5 to 7 days for reevaluation or return to the ED immediately if symptoms get worse. - Differential Diagnosis Pneumonia; Bornchitis; asthma; URI; Flu; CAD Critical care attestation.: If time is entered above; I have spent that time in minutes in the direct care of this critically ill patient, excluding procedure time. ED Disposition Clinical Impression: Acute asthmatic bronchitis, Acute upper respiratory infection, Anterior chest wall pain, Chest pain, pleuritic Disposition: - TO HOME OR SELFCARE Is pt being admited?: No Does the pt Need Aspirin: No Condition: Stable Instructions: Chest Pain (ED), Upper Respiratory Infection (ED), Acute Bronchitis (ED) Additional Instructions: All lab test results and chest x-ray showed no acute abnormalities. Therefore take medication with food, drink plenty of fluids and follow-up with your primary care physician in 5 to 7 days for reevaluation. Return to the ED imm ediately if symptoms get worse. Prescriptions: levoFLOXacin [Levaquin TAB] 500 mg PO QDAY #10 tablet Ibuprofen [Motrin] 800 mg PO Q8HR PRN #24 tablet PRN Reason: Pain , Severe (7-10) Prednisone [predniSONE 10 mg (6-Day Pack, 21 Tabs)] 10 mg PO .TAPER #21 tab.ds.pk Albuterol Sulfate [Proventil Hfa] 1 - 2 puff IH Q6H PRN #1 inh PRN Reason: Dyspnea Benzonatate [Tessalon Perles] 100 mg PO Q8HR #30 capsule Cetirizine HCl [Zyrtec 10mg tab] 10 mg PO DAILY #30 tablet Referrals: PRIMARY CARE, [Primary Care Provider] - 3-5 Days Forms: Work/School Release Form(ED) Time of Disposition: 01:27 Print Language: MONGOLIAN
== END 2019-04-17 01:41 | disposition home or self-care (01) ==
LOC: ED 19:30
DX: J45.998 Other asthma (principal); J06.9 Acute upper respiratory infection, unspecified; I10 Essential (primary) hypertension; I25.2 Old myocardial infarction; F43.10 Post-traumatic stress disorder, unspecified; F33.9 Major depressive disorder, recurrent, unspecified; G89.29 Other chronic pain; F17.200 Nicotine dependence, unspecified, uncomplicated; Z98.51 Tubal ligation status; Z79.899 Other long term (current) drug therapy; Z88.1 Allergy status to other antibiotic agents; Z91.013 Allergy to seafood
CPT/HCPCS: 36415; 71046; 80053; 84484; 85025; 93005; 93010; 94640; 96374; 99284; J2930

== ENCOUNTER 2020-02-22 13:44 | Emergency (ER) | payer BC, MEDICARE ==
--- NOTE | 2020-02-22 15:39 | XRay Report ---
CHEST 2 VIEWS INDICATION / CLINICAL INFORMATION: chest pain. COMPARISON: 04/16/2019 FINDINGS: SUPPORT DEVICES: None. HEART / MEDIASTINUM: No significant abnormality. LUNGS / PLEURA: No significant pulmonary or pleural abnormality. No pneumothorax. ADDITIONAL FINDINGS: No significant additional findings. IMPRESSION: 1. No acute findings. Signer Name: Jorje Bunch MD Signed: 02/22/2020 3:35 PM Workstation Name: [id number]
[2020-02-22 16:27] LABS: Basophils # (Auto) 0.1 K/mm3 (0.0-0.1); Eosinophils # (Auto) 0.1 K/mm3 (0.0-0.4); Eosinophils % (Auto) 1.7 % (0.0-4.3); Hematocrit 39.6 % (30.3-42.9); Hemoglobin 13.4 gm/dl (10.1-14.3); Lymphocytes # (Auto) 2.5 K/mm3 (1.2-5.4); Lymphocytes % (Auto) 30.7 % (13.4-35.0); Mean Corpuscular HGB Conc 34 % (30-34); Mean Corpuscular Volume 89 fl (79-97); Monocytes # (Auto) 0.4 K/mm3 (0.0-0.8); Platelet Count 378 K/mm3 (140-440); Red Blood Count 4.47 M/mm3 (3.65-5.03); Red Cell Distribution Width 15.7 % (13.2-15.2)
[2020-02-22 16:55] LABS: Alanine Aminotransferase 11 units/L (7-56); Albumin 4.3 g/dL (3.9-5); BUN/Creatinine Ratio 12; Blood Urea Nitrogen 11 mg/dL (7-17); Calcium 9.3 mg/dL (8.4-10.2); Hemolysis Index 23
--- NOTE | 2020-02-22 19:23 | Emergency Department Report ---
ED Chest Pain HPI - General Chief Complaint: Chest Pain Stated Complaint: CHEST PAIN/LBP Time Seen by Provider: 02/22/20 19:18 Source: patient Mode of arrival: Ambulatory Limitations: No Limitations - History of Present Illness Initial Comments: Patient is a 49-year-old female presents emergency room complaints of left-sided chest pain that began a few days ago. She states that it is underneath her left breast. She states that she has had a lot of increased stress. She states her father just a few days ago. She states that the pain is worse whenever the bra wire sits on the area. She states that it feels like a tightness. She states it improves after using her asthma inhaler. She denies any radiation of the pain. She denies any nausea, vomiting, diarrhea, productive cough, hemoptysis, fever, rash, leg swelling She denies any sick contacts, recent travel, recent surgery, hormone use. She has a past medical history of asthma, hypertension, anxiety, PTSD, MDD. She states that she has been trying to get in with the [facility] secondary to the increased stress and anxiety. She denies any SI, HI, hallucinations. - Related Data Home Medications Medication Instructions Recorded Confirmed Last Taken Cyclobenzaprine [Flexeril 10 MG 10 mg PO TID 10/19/12 03/16/17 03/16/17 TAB] hydroCHLOROthiazide [HCTZ] 25 mg PO QDAY 10/19/12 03/16/17 03/16/17 lisinopriL [Zestril TAB] 40 mg PO QDAY 10/19/12 03/16/17 03/16/17 traMADoL [Ultram 50 MG tab] 50 mg PO Q6HR PRN 10/19/12 03/16/17 03/16/17 Aspirin 325 mg PO QDAY 06/23/13 03/16/17 03/16/17 Escitalopram Oxalate [Lexapro] 20 mg PO DAILY 03/16/17 03/16/17 03/16/17 Meloxicam [Mobic] 15 mg PO DAILY 03/16/17 03/16/17 03/16/17 Pantoprazole [Protonix TAB] 20 mg QDAY 03/16/17 03/16/17 03/16/17 Prazosin 1 mg PO BID 03/16/17 03/16/17 03/16/17 amLODIPine 10 mg PO DAILY 03/16/17 03/16/17 03/16/17 Previous Rx's Medication Instructions Recorded Last Taken Type Albuterol Sulfate [Proventil Hfa] 1 - 2 puff IH Q6H PRN #1 inh 04/17/19 Unknown Rx Benzonatate [Tessalon Perles] 100 mg PO Q8HR #30 capsule 04/17/19 Unknown Rx Cetirizine HCl [Zyrtec 10mg tab] 10 mg PO DAILY #30 tablet 04/17/19 Unknown Rx Ibuprofen [Motrin] 800 mg PO Q8HR PRN #24 tablet 04/17/19 Unknown Rx Prednisone [predniSONE 10 mg 10 mg PO .TAPER #21 tab.ds.pk 04/17/19 Unknown Rx (6-Day Pack, 21 Tabs)] levoFLOXacin [Levaquin TAB] 500 mg PO QDAY #10 tablet 04/17/19 Unknown Rx Naproxen [Naprosyn] 500 mg PO BID PRN #14 tablet 02/22/20 Unknown Rx hydrOXYzine HCL [Atarax] 25 mg PO Q6HR PRN #10 tablet 02/22/20 Unknown Rx Allergies Allergy/AdvReac Type Severity Reaction Status Date / Time erythromycin base Allergy Swelling Verified 02/22/20 13:45 [Erythromycin Base] Penicillins Allergy Swelling Verified 02/22/20 13:45 Tetracyclines Allergy Swelling Verified 02/22/20 13:45 seafoo Allergy Swelling Uncoded 10/19/12 02:25 Heart Score - HEART Score History: Slightly suspicious EKG: Normal Age: 45-65 Risk factors: 1-2 risk factors Troponin: < normal limit HEART Score: 2 ED Review of Systems ROS: Stated complaint: CHEST PAIN/LBP Other details as noted in HPI Comment: All other systems reviewed and negative ED Past Medical Hx - Past Medical History Hx Hypertension: Yes Hx Heart Attack/AMI: Yes (2006) Hx Psychiatric Treatment: Yes (PTSD, depression, anxiety) Hx Asthma: Yes Additional medical history: chronic pain patient. Acid Reflux. gerd - Surgical History Additional Surgical History: Bilateral tubal ligation, laparoscopy, cardiac catheterization 2009 - Social History Smoking Status: Never Smoker Substance Use Type: Alcohol - Medications Home Medications: Home Medications Medication Instructions Recorded Confirmed Last Taken Type Cyclobenzaprine [Flexeril 10 MG 10 mg PO TID 10/19/12 03/16/17 03/16/17 History TAB] hydroCHLOROthiazide [HCTZ] 25 mg PO QDAY 10/19/12 03/16/17 03/16/17 History lisinopriL [Zestril TAB] 40 mg PO QDAY 10/19/12 03/16/17 03/16/17 History traMADoL [Ultram 50 MG tab] 50 mg PO Q6HR PRN 10/19/12 03/16/17 03/16/17 History Aspirin 325 mg PO QDAY 06/23/13 03/16/17 03/16/17 History Escitalopram Oxalate [Lexapro] 20 mg PO DAILY 03/16/17 03/16/17 03/16/17 History Meloxicam [Mobic] 15 mg PO DAILY 03/16/17 03/16/17 03/16/17 History Pantoprazole [Protonix TAB] 20 mg QDAY 03/16/17 03/16/17 03/16/17 History Prazosin 1 mg PO BID 03/16/17 03/16/17 03/16/17 History amLODIPine 10 mg PO DAILY 03/16/17 03/16/17 03/16/17 History Albuterol Sulfate [Proventil Hfa] 1 - 2 puff IH Q6H PRN #1 inh 04/17/19 Unknown Rx Benzonatate [Tessalon Perles] 100 mg PO Q8HR #30 capsule 04/17/19 Unknown Rx Cetirizine HCl [Zyrtec 10mg tab] 10 mg PO DAILY #30 tablet 04/17/19 Unknown Rx Ibuprofen [Motrin] 800 mg PO Q8HR PRN #24 tablet 04/17/19 Unknown Rx Prednisone [predniSONE 10 mg 10 mg PO .TAPER #21 tab.ds.pk 04/17/19 Unknown Rx (6-Day Pack, 21 Tabs)] levoFLOXacin [Levaquin TAB] 500 mg PO QDAY #10 tablet 04/17/19 Unknown Rx Naproxen [Naprosyn] 500 mg PO BID PRN #14 tablet 02/22/20 Unknown Rx hydrOXYzine HCL [Atarax] 25 mg PO Q6HR PRN #10 tablet 02/22/20 Unknown Rx ED Physical Exam - General Limitations: No Limitations General appearance: alert, in no apparent distress - Head Head exam: Present: atraumatic, normocephalic - Eye Eye exam: Present: normal appearance - ENT ENT exam: Present: mucous membranes moist - Respiratory Respiratory exam: Present: normal lung sounds bilaterally. Absent: respiratory distress, wheezes, rales, rhonchi, stridor, chest wall tenderness, accessory muscle use, decreased breath sounds, prolonged expiratory - Cardiovascular Cardiovascular Exam: Present: regular rate, normal rhythm, normal heart sounds. Absent: systolic murmur, diastolic murmur, rubs, gallop - Neurological Exam Neurological exam: Present: alert, oriented X3 - Psychiatric Psychiatric exam: Present: other (tearful). Absent: homicidal ideation, suicidal ideation - Skin Skin exam: Present: warm, dry, intact ED Course Vital Signs 02/22/20 02/22/20 02/22/20 13:52 19:41 19:44 Temperature 98.6 F Pulse Rate 101 H 95 H Respiratory 20 18 18 Rate Blood Pressure 151/76 Blood Pressure 148/87 [Left] O2 Sat by Pulse 100 100 Oximetry JEB score - Jeb Score Age > 65: (0) No Aspirin use within the Past 7 Days: (0) No 3 or more CAD Risk Factors: (0) No 2 or more Angina events in past 24 hrs: (0) No Known CAD with more than 50% Stenosis: (0) No Elevated Cardiac Markers: (0) No ST Deviation Greater than 0.5mm: (0) No JEB Score: 0 ED Medical Decision Making - Lab Data Result diagrams: 02/22/20 16:07 02/22/20 16:07 Lab Results 02/22/20 02/22/20 02/22/20 Range/Units 16:07 16:07 17:51 WBC 8.0 (4.5-11.0) K/mm3 RBC 4.47 (3.65-5.03) M/mm3 Hgb 13.4 (10.1-14.3) gm/dl Hct 39.6 (30.3-42.9) % MCV 89 (79-97) fl MCH 30 (28-32) pg MCHC 34 (30-34) % RDW 15.7 H (13.2-15.2) % Plt Count 378 (140-440) K/mm3 Lymph % (Auto) 30.7 (13.4-35.0) % [place] % (Auto) 5.0 (0.0-7.3) % Eos % (Auto) 1.7 (0.0-4.3) % Baso % (Auto) 1.0 (0.0-1.8) % Lymph # (Auto) 2.5 (1.2-5.4) K/mm3 [place] # (Auto) 0.4 (0.0-0.8) K/mm3 Eos # (Auto) 0.1 (0.0-0.4) K/mm3 Baso # (Auto) 0.1 (0.0-0.1) K/mm3 Seg Neutrophils % 61.6 (40.0-70.0) % Seg Neutrophils # 4.9 (1.8-7.7) K/mm3 Sodium 142 (137-145) mmol/L Potassium 4.3 (3.6-5.0) mmol/L Chloride 105.9 (98-107) mmol/L Carbon Dioxide 24 (22-30) mmol/L Anion Gap 16 mmol/L BUN 11 (7-17) mg/dL Creatinine 0.9 (0.6-1.2) mg/dL Estimated GFR > 60 ml/min BUN/Creatinine Ratio 12 % Glucose 105 H (65-100) mg/dL Calcium 9.3 (8.4-10.2) mg/dL Total Bilirubin 0.20 (0.1-1.2) mg/dL AST 13 (5-40) units/L ALT 11 (7-56) units/L Alkaline Phosphatase 93 (35-129) units/L Troponin T < 0.010 < 0.010 (0.00-0.029) ng/mL Total Protein 6.8 (6.3-8.2) g/dL Albumin 4.3 (3.9-5) g/dL Albumin/Globulin Ratio 1.7 % Vital Signs 02/22/20 02/22/20 02/22/20 13:52 19:41 19:44 Temperature 98.6 F Pulse Rate 101 H 95 H Respiratory 20 18 18 Rate Blood Pressure 151/76 Blood Pressure 148/87 [Left] O2 Sat by Pulse 100 100 Oximetry - EKG Data EKG shows normal: sinus rhythm, axis, intervals, QRS complexes, ST-T waves Rate: normal - Radiology Data Radiology results: report reviewed Ordering Physician: MARGARITA CALDERON Date of Service: 01/14/21 Procedure(s): XR chest routine 2V Accession Number(s): [id number] cc: MARGARITA CALDERON Fluoro Time In Minutes: CHEST 2 VIEWS INDICATION / CLINICAL INFORMATION: chest pain. COMPARISON: 04/16/2019 FINDINGS: SUPPORT DEVICES: None. HEART / MEDIASTINUM: No significant abnormality. LUNGS / PLEURA: No significant pulmonary or pleural abnormality. No pneumothorax. ADDITIONAL FINDINGS: No significant additional findings. IMPRESSION: 1. No acute findings. Signer Name: Jorje Bunch MD Signed: 02/22/2020 3:35 PM Workstation Name: [id number] Transcribed By: JUSTINE Dictated By: Jorje Bunch MD Electronically Authenticated By: Jorje Bunch MD Signed Date/Time: 02/22/201534 DD/ 33 TD/TT: - Medical Decision Making Patient is a 49-year-old female presents emergency room complaints of left-sided chest pain that began a few days ago. She states that it is underneath her left breast. She states that she has had a lot of increased stress. She states her father just a few days ago. She states that the pain is worse whenever the bra wire sits on the area. She states that it feels like a tightness. She states it improves after using her asthma inhaler. She denies any radiation of the pain. She denies any nausea, vomiting, diarrhea, productive cough, hemoptysis, fever, rash, leg swelling She denies any sick contacts, recent travel, recent surgery, hormone use. She has a past medical history of asthma, hypertension, anxiety, PTSD, MDD. She states that she has been trying to get in with the [facility] secondary to the increased stress and anxiety. She denies any SI, HI, hallucinations. VSS. No abnormality on physical examination as documented in chart. Patient is low risk based on Wells criteria for PE, PE unlikely. heart score is 2, JEB score is 0, low risk for cardiac event, do not suspect ACS. EKG is within normal limits. Labs are normal, troponin is negative x2. Chest x-ray 1. No acute findings. Symptoms likely related to stress anxiety. She has no acute asthma exacerbation at this time. Her breath sounds are clear bilaterally, she has no clinical signs of bacterial pneumonia or bacterial bronchitis. Patient given prescription for hydroxyzine and naproxen. Advised patient Please take medication medication as prescribed as needed. Follow-up with a primary care doctor. Follow-up with a psychiatrist psychologist. Return to emergency room immediately for any new or worsening symptoms. - Differential Diagnosis Anxiety, stress reaction, ACS, PNA, PTX, PE, GERD, anemia, arrhythmia Critical care attestation.: If time is entered above; I have spent that time in minutes in the direct care of this critically ill patient, excluding procedure time. ED Disposition Clinical Impression: Atypical chest pain, Anxiety Disposition: DC- TO HOME OR SELFCARE Is pt being admited?: No Does the pt Need Aspirin: No Condition: Stable Instructions: Nonspecific Chest Pain, Adult, Managing Anxiety, Adult, Chest Pain (ED) Additional Instructions: Please take medication medication as prescribed as needed. Follow-up with a primary care doctor. Follow-up with a psychiatrist psychologist. Return to emergency room immediately for any new or worsening symptoms. Prescriptions: hydrOXYzine HCL [Atarax] 25 mg PO Q6HR PRN #10 tablet PRN Reason: anxiety Naproxen [Naprosyn] 500 mg PO BID PRN #14 tablet PRN Reason: pain Referrals: PHONG BELTRE MD [Primary Care Provider] - 2-3 Days [facility] [Outside] - 2-3 Days Time of Disposition: 19:23 Print Language: SCOTTISH
[2020-02-22 19:45] VITALS: BP 148/87
== END 2020-02-22 19:45 | disposition home or self-care (01) ==
LOC: ED 13:44
DX: R07.89 Other chest pain (principal); F41.9 Anxiety disorder, unspecified; I25.2 Old myocardial infarction; I10 Essential (primary) hypertension; J45.909 Unspecified asthma, uncomplicated; Z98.890 Other specified postprocedural states; Z79.1 Long term (current) use of non-steroidal anti-inflammatories (NSAID); Z79.899 Other long term (current) drug therapy; Z88.0 Allergy status to penicillin; Z88.8 Allergy status to other drugs, medicaments and biological substances
CPT/HCPCS: 36415; 71046; 80053; 84484; 85025; 93005

== ENCOUNTER 2021-03-18 17:53 | Emergency (ER) | payer BC, MEDICARE ==
[2021-03-18 22:23] LABS: Bilirubin,Urine Negative (Negative); Color,Urine Yellow (Yellow)
[2021-03-18 22:24] LABS: Blood,Urine Negative (Negative); Protein,Urine <15 mg/dL mg/dL (Negative); RBC,Urine < 1.0 /HPF (0.0-6.0); Urobilinogen,Urine < 2.0 mg/dL (<2.0); WBC,Urine < 1.0 /HPF (0.0-6.0)
--- NOTE | 2021-03-18 23:04 | Emergency Department Report ---
ED Female HPI - General Chief complaint: Urogenital-Female Stated complaint: BLOOD IN URINE Time Seen by Provider: 03/18/21 19:59 Source: patient Mode of arrival: Ambulatory Limitations: No Limitations - History of Present Illness Initial comments: Patient 50-year-old female who presents with dysuria frequency urgency x1 week. Patient states she is noted hematuria today. Recent treatment for STI. Primary complaint at this time is urinary frequency. There is no open lesions or sores. No fevers no chills no abnormal vaginal discharge. There is no abdominal pain no nausea no vomiting no back pain. Symptoms are exacerbated by voiding. Symptoms are relieved by nothing tried. MD Complaint: dysuria - Related Data Home Medications Medication Instructions Recorded Confirmed Last Taken Cyclobenzaprine [Flexeril 10 MG 10 mg PO TID 10/19/12 03/16/17 03/16/17 TAB] hydroCHLOROthiazide [HCTZ] 25 mg PO QDAY 10/19/12 03/16/17 03/16/17 lisinopriL [Zestril TAB] 40 mg PO QDAY 10/19/12 03/16/17 03/16/17 traMADoL [Ultram 50 MG tab] 50 mg PO Q6HR PRN 10/19/12 03/16/17 03/16/17 Aspirin 325 mg PO QDAY 06/23/13 03/16/17 03/16/17 Escitalopram Oxalate [Lexapro] 20 mg PO DAILY 03/16/17 03/16/17 03/16/17 Meloxicam [Mobic] 15 mg PO DAILY 03/16/17 03/16/17 03/16/17 Pantoprazole [Protonix TAB] 20 mg QDAY 03/16/17 03/16/17 03/16/17 Prazosin 1 mg PO BID 03/16/17 03/16/17 03/16/17 amLODIPine 10 mg PO DAILY 03/16/17 03/16/17 03/16/17 Previous Rx's Medication Instructions Recorded Last Taken Type Albuterol Sulfate [Proventil Hfa] 1 - 2 puff IH Q6H PRN #1 inh 04/17/19 Unknown Rx Benzonatate [Tessalon Perles] 100 mg PO Q8HR #30 capsule 04/17/19 Unknown Rx Cetirizine HCl [Zyrtec 10mg tab] 10 mg PO DAILY #30 tablet 04/17/19 Unknown Rx Ibuprofen [Motrin] 800 mg PO Q8HR PRN #24 tablet 04/17/19 Unknown Rx Prednisone [predniSONE 10 mg 10 mg PO .TAPER #21 tab.ds.pk 04/17/19 Unknown Rx (6-Day Pack, 21 Tabs)] levoFLOXacin [Levaquin TAB] 500 mg PO QDAY #10 tablet 04/17/19 Unknown Rx Naproxen [Naprosyn] 500 mg PO BID PRN #14 tablet 02/22/20 Unknown Rx hydrOXYzine HCL [Atarax] 25 mg PO Q6HR PRN #10 tablet 02/22/20 Unknown Rx Nitrofurantoin [place]/M-Cryst 100 mg PO BID 7 Days #14 capsule 03/18/21 Unknown Rx [Macrobid CAP] Allergies Allergy/AdvReac Type Severity Reaction Status Date / Time erythromycin base Allergy Swelling Verified 02/22/20 13:45 [Erythromycin Base] Penicillins Allergy Swelling Verified 02/22/20 13:45 Tetracyclines Allergy Swelling Verified 02/22/20 13:45 seafoo Allergy Swelling Uncoded 10/19/12 02:25 ED Review of Systems ROS: Stated complaint: BLOOD IN URINE Other details as noted in HPI Constitutional: denies: chills, fever Eyes: denies: eye pain, eye discharge, vision change ENT: denies: ear pain, throat pain Respiratory: denies: cough, shortness of breath, wheezing Cardiovascular: denies: chest pain, palpitations Endocrine: no symptoms reported Gastrointestinal: denies: abdominal pain, nausea, vomiting, diarrhea Genitourinary: urgency, dysuria, frequency, hematuria. denies: discharge Musculoskeletal: denies: back pain, joint swelling, arthralgia Skin: denies: rash, lesions Neurological: denies: headache, weakness, paresthesias Psychiatric: denies: anxiety, depression Hematological/Lymphatic: denies: easy bleeding, easy bruising ED Past Medical Hx - Past Medical History Previous Medical History?: Yes Hx Hypertension: Yes Hx Heart Attack/AMI: Yes (2006) Hx Psychiatric Treatment: Yes (PTSD, depression, anxiety) Hx Asthma: Yes Additional medical history: chronic pain patient. Acid Reflux. gerd - Surgical History Past Surgical History?: Yes Additional Surgical History: Bilateral tubal ligation, laparoscopy, cardiac catheterization 2009 - Social History Smoking Status: Never Smoker Substance Use Type: Alcohol - Medications Home Medications: Home Medications Medication Instructions Recorded Confirmed Last Taken Type Cyclobenzaprine [Flexeril 10 MG 10 mg PO TID 10/19/12 03/16/17 03/16/17 History TAB] hydroCHLOROthiazide [HCTZ] 25 mg PO QDAY 10/19/12 03/16/17 03/16/17 History lisinopriL [Zestril TAB] 40 mg PO QDAY 10/19/12 03/16/17 03/16/17 History traMADoL [Ultram 50 MG tab] 50 mg PO Q6HR PRN 10/19/12 03/16/17 03/16/17 History Aspirin 325 mg PO QDAY 06/23/13 03/16/17 03/16/17 History Escitalopram Oxalate [Lexapro] 20 mg PO DAILY 03/16/17 03/16/17 03/16/17 History Meloxicam [Mobic] 15 mg PO DAILY 03/16/17 03/16/17 03/16/17 History Pantoprazole [Protonix TAB] 20 mg QDAY 03/16/17 03/16/17 03/16/17 History Prazosin 1 mg PO BID 03/16/17 03/16/17 03/16/17 History amLODIPine 10 mg PO DAILY 03/16/17 03/16/17 03/16/17 History Albuterol Sulfate [Proventil Hfa] 1 - 2 puff IH Q6H PRN #1 inh 04/17/19 Unknown Rx Benzonatate [Tessalon Perles] 100 mg PO Q8HR #30 capsule 04/17/19 Unknown Rx Cetirizine HCl [Zyrtec 10mg tab] 10 mg PO DAILY #30 tablet 04/17/19 Unknown Rx Ibuprofen [Motrin] 800 mg PO Q8HR PRN #24 tablet 04/17/19 Unknown Rx Prednisone [predniSONE 10 mg 10 mg PO .TAPER #21 tab.ds.pk 04/17/19 Unknown Rx (6-Day Pack, 21 Tabs)] levoFLOXacin [Levaquin TAB] 500 mg PO QDAY #10 tablet 04/17/19 Unknown Rx Naproxen [Naprosyn] 500 mg PO BID PRN #14 tablet 02/22/20 Unknown Rx hydrOXYzine HCL [Atarax] 25 mg PO Q6HR PRN #10 tablet 02/22/20 Unknown Rx Nitrofurantoin [place]/M-Cryst 100 mg PO BID 7 Days #14 capsule 03/18/21 Unknown Rx [Macrobid CAP] ED Physical Exam - General Limitations: No Limitations General appearance: alert, in no apparent distress - Head Head exam: Present: atraumatic, normocephalic - Eye Eye exam: Present: normal appearance, EOMI Pupils: Present: normal accommodation - ENT ENT exam: Present: mucous membranes moist - Neck Neck exam: Present: normal inspection, full ROM. Absent: tenderness - Respiratory Respiratory exam: Present: normal lung sounds bilaterally. Absent: respiratory distress, wheezes - Cardiovascular Cardiovascular Exam: Present: regular rate, normal rhythm, normal heart sounds. Absent: systolic murmur, diastolic murmur, rubs, gallop - GI/Abdominal GI/Abdominal exam: Present: soft, normal bowel sounds. Absent: distended, tenderness, guarding, rebound, rigid - Rectal Rectal exam: Present: deferred - External exam: Present: other (deferred per patient ) - Extremities Exam Extremities exam: Present: normal inspection - Back Exam Back exam: Present: normal inspection, full ROM. Absent: CVA tenderness (R), CVA tenderness (L) - Neurological Exam Neurological exam: Present: alert, oriented X3, CN II-XII intact, normal gait - Psychiatric Psychiatric exam: Present: normal affect, normal mood - Skin Skin exam: Present: warm, dry, intact, normal color. Absent: rash ED Medical Decision Making - Lab Data Labs 03/18/21 Unknown Urine Color Yellow Urine Turbidity Clear Urine pH 5.0 Ur Specific [place] 1.015 Urine Protein <15 mg/dl Urine Glucose (UA) Negative Urine Ketones Negative Urine Blood Negative Urine Nitrite Negative Urine Bilirubin Negative Urine Urobilinogen < 2.0 Ur Leukocyte Esterase Small Urine WBC (Auto) < 1.0 Urine RBC (Auto) < 1.0 - Medical Decision Making UA noted for leukocytes we will treat for UTI, follow-up primary care doctor in 2 to 3 days. Return to emergency department symptoms worsen. Patient verbalized agreement and understanding of discharge plan. Patient DC'd home in stable condition at this time. Critical care attestation.: If time is entered above; I have spent that time in minutes in the direct care of this critically ill patient, excluding procedure time. ED Disposition Clinical Impression: UTI (urinary tract infection) Qualifiers: Urinary tract infection type: acute cystitis Hematuria presence: without hematuria Qualified Code(s): N30.00 - Acute cystitis without hematuria Disposition: HOME / SELF CARE / HOMELESS Is pt being admited?: No Does the pt Need Aspirin: No Condition: Stable Instructions: Urinary Tract Infection, Adult Additional Instructions: Medical take medications as prescribed, hydrate as directed. Follow-up with your doctor in 2 to 3 days. Return to emergency department should symptoms worsen. Prescriptions: Nitrofurantoin [place]/M-Cryst [Macrobid CAP] 100 mg PO BID 7 Days #14 capsule Referrals: PRIMARY CARE, [Primary Care Provider] - 3-5 Days Forms: Work/School Release Form(ED) Time of Disposition: 23:04
[2021-03-18 23:53] VITALS: BP 131/68
== END 2021-03-18 23:54 | disposition home or self-care (01) ==
LOC: ED 17:53
DX: N39.0 Urinary tract infection, site not specified (principal); I10 Essential (primary) hypertension; J45.909 Unspecified asthma, uncomplicated; G89.29 Other chronic pain; K21.9 Gastro-esophageal reflux disease without esophagitis; Z98.51 Tubal ligation status; Z98.890 Other specified postprocedural states; Z88.1 Allergy status to other antibiotic agents; Z88.0 Allergy status to penicillin; Z91.013 Allergy to seafood
CPT/HCPCS: 81001; 99283

== ENCOUNTER 2021-09-19 10:08 | Emergency (ER) | payer BC, MEDICARE | END 2021-09-19 10:20 | disposition left against medical advice (07) | LOC: ED 10:08 | DX: R04.2 Hemoptysis (principal); Z53.21 Procedure and treatment not carried out due to patient leaving prior to being seen by health care provider ==